=== PATIENT | male | born 1985 | race Caucasian/White ===

== ENCOUNTER 2025-04-19 09:57 | Emergency (ER) | payer MEDICAID ==
[~2025-04-19] VITALS: Ht 190.5 cm; Wt 89.2 kg
[~2025-04-19 09:57] MED LIST: ALBU18HF2 IH; CLON-527 PO; FAMO-1 PO; GUAI473S11 PO; HYDR1TAB PO; IBUP-1574 PO; IBUP-1984 PO; LORA-512 PO; PRED20TA PO; ROBCFL PO
[2025-04-19 10:12] VITALS: BP 128/81; PULSE 86; RESP 18; O2SAT 98
[2025-04-19] MEDS ORDERED: SULF1TAB49 PO (10:36)
--- NOTE | 2025-04-19 10:37 | Physician Documentation ---
History of Present Illness ~ Chief Complaint: Rash Stated Complaint: ABSCESS Time Seen by MD: 10:07 Primary Medical Doctor: NONE HPI This is a 39-year-old male who presents to the emergency department reporting that he has several sores on his buttocks. He is noting pain to the left buttock, causing difficulty sitting. He denies chills or fever, nausea or vomiting, flu-like symptoms. Medication Reconciliation Allergies: Coded Allergies: lansoprazole (Verified Allergy, Unknown, 04/19/25) Scheduled Albuterol Sulfate (Ventolin Hfa), 18 GM IH Q6H Clonazepam* (Klonopin*), 1 MG PO HS, (Reported) Famotidine* (Pepcid*), 20 MG PO DAILY Guaifenesin/Codeine Phos AC Syrup* (Cheratussin AC Syrup*), 10 ML PO Q6H Guaifenesin/D-Methorphan Hb/Pe Syrup* (Robitussin CF Syrup*), 10 ML PO Q6H Hydrocodone/Acetaminophen (Vicodin 5-500 Tablet), 1 TAB PO Q4H, (Reported) Ibuprofen (Ibuprofen), 600 MG PO Q8H Ibuprofen* (Motrin*), 800 MG PO QID Loratadine* (Alavert*), 10 MG PO DAILY, (Reported) Prednisone* (Prednisone*), 40 MG PO DAILY Prednisone* (Prednisone*), 40 MG PO DAILY Sulfamethoxazole/Trimethoprim (Bactrim Ds Tablet), 1 TAB PO Q12H Past Medical History Past Medical History: No Pertinent History, Anxiety, Bipolar, Schizophrenia Past Surgical History: orthopedic surgeries Alcohol Use: Occasionally Drug Use: none Lives with: Family Lives In: Home Occupation: employed, student Review of Systems ROS As stated above in the HPI, otherwise all systems are reviewed and negative. Physical Exam Vital Signs: Temperature: 97.8, Source: Temporal, Heart Rate: 86, Respiratory Rate: 18, BP: 128/81, Pulse Oximetry: 98, Weight: 89.150 Oxygen Flow Rate: 0 Physical Exam General: Alert, no apparent distress. Neck: Full range of motion. Respiratory: Lungs clear, no respiratory distress. Chest: No accessory muscle use. Cardiovascular: Regular rate and rhythm, no murmurs. Gastrointestinal: Soft, nontender, nondistended. Bowels sounds present. Extremities: Normal range of motion, no deformity. Neurologic: Oriented x4. Psychiatric: Normal mood and affect. Skin: Normal color, warm and dry. Several lesions to the buttocks, maculopapular. One abscess area left buttock with yellow center. Procedures Procedures I&D to left buttock abscess accomplished after verbal consent obtained. 1 ml of 1% lidocaine without epi injected at site after skin cleansed with alcohol. Tiny stab in center with #11 blade, after which point purulence and blood returned. Dressing applied by nurse. patient dwight fair. Progress Results/Orders Results/Orders Orders - RENAE WAYNE [employer] REFEREE Dressing Orders (04/19/25 10:33) Laceration/I&D Tray Set Up (04/19/25 10:33) Wound Care Orders (04/19/25 10:33) Completed Orders - RENAE WAYNE [employer] REFEREE Tetanus/Pertuss/Diph Acell/Pf (Boostrix (04/19/25 10:35) Lidocaine 1% 30ml Vial (Xylocaine 1% Via (04/19/25 10:35) Medications Received in ER Medications (Trade) Dose Ordered Sig/Latricia Route PRN Reason Start Time Stop Time Status Last Admin Dose Admin (Boostrix vaccine syringe) 0.5 ml ONCE ONCE IMVAC 04/19/25 10:35 04/19/25 10:36 DC 04/19/25 10:45 0.5 ML Vital Signs 04/19/25 10:12 Temp 97.8 Pulse 86 Resp 18 B/P (MAP) 128/81 Pulse Ox 98 O2 Flow Rate 0 Medical Decision Making Differential Dx:Considerations: Include: Abscess, Candidiasis, Contact dermatitis, Drug reaction, Erythema multiforme, Herpes zoster, Herpes simplex, Impetigo, Intertrigo, Psoriaisis, Scabies, Viral exanthema Departure Time of Disposition: 10:36 Impression: Primary Impression: Abscess Condition: Stable Discharge Instructions: Abscess, Care After Additional Instructions: Your tetanus status was updated in the emergency department. Take the prescribed antibiotics. Apply warm moist compresses to the abscess area on the left buttock for 15 minutes or more 4 times a day. Follow up with your primary care provider within the next week. Return if worse. Referrals: NO PRIMARY CARE PROVIDER (PCP) Prescriptions Sulfamethoxazole/Trimethoprim (Bactrim Ds Tablet) 800 Mg-160 Mg Tablet 1 TAB PO Q12H for 5 Days, #10 TAB Prov: RENAE WAYNE [employer] REFEREE 04/19/25 Education Educated: Patient Educated regarding: diagnosis, treatment, prognosis, need for follow up Signature Scribe Signature: x Attestation: The note accurately reflects work and decisions made by me.Renae Wayne - LARS 04/19/25 10:35 RENAE WAYNE [employer] REFEREE Apr 19, 2025 10:37
[2025-04-19] MEDS: TETanus/Pertussis (Acell)/Diphther VAC/PF (Tdap-Adult) 0.5ml syringe IMVAC ONE (10:45)
[2025-04-19] MEDS: LIDOcaine 1% 30ml preserv. free vial IJ ONE (10:46)
[2025-04-19 11:21] VITALS: TEMP 97.8
== END 2025-04-19 11:23 | disposition home or self-care (01) ==
LOC: ER 09:58
DX: L02.31 Cutaneous abscess of buttock (principal); Z88.8 Allergy status to other drugs, medicaments and biological substances; Z79.899 Other long term (current) drug therapy; Z72.89 Other problems related to lifestyle
CPT/HCPCS: 10060; 90471; 90715; 99283; A6407; A6449

== ENCOUNTER 2025-04-22 04:22 | Emergency (ER) | payer MEDICAID ==
[~2025-04-22] VITALS: Ht 188 cm; Wt 91.3 kg
[~2025-04-22 04:22] MED LIST changes: +SULF1TAB49 PO
[2025-04-22] MEDS ORDERED: CefTRIAXone 250MG IM Kit w/LIDOcaine IM ONE (06:20)
--- NOTE | 2025-04-22 06:33 | Physician Documentation ---
History of Present Illness ~ Chief Complaint: Abscess Stated Complaint: GROIN ABSCESS Time Seen by MD: 06:19 Primary Medical Doctor: NONE HPI This is a 39-year-old gentleman with a known history of schizophrenia who presents for evaluation of painful area on the inside of his right scrotum. He says has been seen here for a buttock abscess which has been drained three days ago. Taking Bactrim. It does not seem to be helping. Also has a lesion at the base of the shaft of his penis. Denies history of STD/STI as. No exposure to syphilis. Denies any fever or chills. Denies any other complaints. He denies use of tobacco, alcohol or illicit substances. Tetanus Within 5 Years: Yes Medication Reconciliation Allergies: Coded Allergies: lansoprazole (Verified Allergy, Unknown, 04/22/25) Scheduled Albuterol Sulfate (Ventolin Hfa), 18 GM IH Q6H Clonazepam* (Klonopin*), 1 MG PO HS, (Reported) Famotidine* (Pepcid*), 20 MG PO DAILY Guaifenesin/Codeine Phos AC Syrup* (Cheratussin AC Syrup*), 10 ML PO Q6H Guaifenesin/D-Methorphan Hb/Pe Syrup* (Robitussin CF Syrup*), 10 ML PO Q6H Hydrocodone/Acetaminophen (Vicodin 5-500 Tablet), 1 TAB PO Q4H, (Reported) Ibuprofen (Ibuprofen), 600 MG PO Q8H Ibuprofen* (Motrin*), 800 MG PO QID Loratadine* (Alavert*), 10 MG PO DAILY, (Reported) Prednisone* (Prednisone*), 40 MG PO DAILY Prednisone* (Prednisone*), 40 MG PO DAILY Sulfamethoxazole/Trimethoprim (Bactrim Ds Tablet), 1 TAB PO Q12H Past Medical History Past Medical History: No Pertinent History, Anxiety, Bipolar, Schizophrenia Past Surgical History: orthopedic surgeries Alcohol Use: Occasionally Drug Use: none Lives with: Family Lives In: Home Occupation: employed, student Review of Systems ROS 10 point review of systems was performed and unless noted above in HPI is negative for acute process/complaint. Physical Exam Vital Signs: Temperature: 97.9, Source: Oral, Heart Rate: 76, Respiratory Rate: 16, BP: 122/80, Pulse Oximetry: 99, Weight: 91.300 Oxygen Flow Rate: 0 Physical Exam Physical examination: GENERAL: Awake, alert, oriented, GCS 15, no apparent distress, non-toxic appearing, answers questions, follows commands appropriately. HEENT: Atraumatic, normocephalic, pupils equal, extraocular muscles intact Active gross movements, sclerae anicteric, mucus membranes moist, no stridor. NECK: Midline, no JVD CARDIOVASCULAR: Good skin perfusion without evidence of pallor, mottling. PULMONARY: Nonlabored, symmetric chest rise, no audible wheezing, no accessory muscle use, no respiratory distress, speaking in full sentences. GASTROINTESTINAL: Not distended. NEUROLOGIC: Lucid with normal mental status. Normal facial symmetry. Moves all extremities symmetrically and with purpose. No truncal ataxia. Speech is fluid without evidence of dysarthria or aphasia, no focal deficits appreciated. EXTREMITIES: Acute deformities Skin: warm, dry PSYCHIATRIC: Normal affect, normal insight, normal concentration. Focused exam: There is area of induration without fluctuance at the base of the scrotum on the right side. No drainage. Erythema and calor noted. Tender to palpation reproducing chief complaint. There is also white painless 6 mm sore at the base of his penis. No fluctuance. Progress Results/Orders Results/Orders Completed Orders - AALIYAH CARBAJAL DO Hydrocodone/Apap 5/325mg Tab ([place] 5/32 (04/22/25 06:20) Ceftriaxone 250 Im W/Lidocaine (Rocephin (04/22/25 06:20) Vital Signs 04/22/25 04:40 Temp 97.9 Pulse 76 Resp 16 B/P (MAP) 122/80 Pulse Ox 99 O2 Flow Rate 0 Medical Decision Making Findings Facility Status: ED Holds, [facility] process The plan was discussed with the patient, who demonstrates clear understanding of the plan and is in agreement with the plan unless otherwise noted in the chart. All questions have been answered, all concerns were addressed unless otherwise documented. I was available throughout their ED stay for frequent reassessment and questions. Differential Diagnoses (considered and possible or likely): [Scrotal cellulitis, less likely scrotal abscess, clinically no evidence of Lynn's gangrene getting] ??Differential Diagnoses (considered and unlikely, not requiring evaluation currently): [No evidence of acute intra-abdominal process. No denies drainage or bleeding.] MDM Data Please see HPI for the following: Independent Historians and external Records Review. Historian: [Patient] Independent Historians: ?[Record review] Medication Management: [Reviewed medication list] Social History and determinants: [Reviewed] Please see the body of the note for the following: Any independent interpretations of ECG, imaging studies. All vitals signs/haemodynamics, ordered tests were independently reviewed and interpreted by myself. Nursing triage complaint and vitals reviewed, additional nursing notes were reviewed as available and I agree unless otherwise noted or documented in contradiction in the chart Vital Signs: Independently reviewed Labs: Independently interpreted Imaging: Independently interpreted Old Medical Records: Independently reviewed, see [facility] for relevant summary and information Pulse Oximetry: [99] interpreted as [normal on room air] by me Additionally notably showing: [Hemodynamically stable] Tests considered but not ordered include: Hematologic workup and imaging has been considered but does not appear to be necessary given clinical nature of diagnosis Social Determinants of Health Impact: Patient was evaluated in [facility], [facility] [place] to healthcare due to below par ratio of patient to medical providers. [] Comorbid Conditions Impacting Present Evaluation and Care/Treatment: [psychiatric disease, suspected drug use] Management Discussions with other Healthcare Providers: [None] Treatment and Disposition Medication Management (Given or considered): [Pain management]. See EMR for details Consideration for Hospitalization/Escalation/Deescalation of Care: Admission for observation has been considered, [however the patient is able to tolerate p.o., their symptoms are controlled, they are able to rely on oral medications, and their chief complaint/diagnosis can be managed on outpatient basis.] ?ED Course:?[No clinical deterioration] ?Shared decision making:?[Patient is hemodynamically stable for discharge home with follow with their primary care provider. [ ] Specific and cautious return precautions provided and discussed with full understanding. Any incidental findings were also discussed and follow up recommendations given. [] All questions answered. Patient/family were able to verbalize back return precautions. Patient/family agree to plan. Copies of imaging and laboratory studies were provided.] Code status:?FULL Please see the full Electronic Medical Record for full details of nursing documentation, medications list, other records of complete past medical history and conditions, vital signs, laboratory studies, and any radiologic study interpretations by radiologists. Portions of this note were completed using dragon dictation software and as a result there may exist minor errors in diane lambert. I have reviewed elements of past family and social history and agree as included in note. Departure Disposition: HOME / SELF CARE / HOMELESS Impression: Primary Impression: Cellulitis of scrotum Condition: Stable Discharge Instructions: Cellulitis, Adult, [id number] Referrals: NO PRIMARY CARE PROVIDER (PCP) Prescriptions Amox Tr/Potassium Clavulanate (Augmentin 875-125 Tablet) 1 Each Tablet 1 TAB PO Q12H for 10 Days, #20 TAB Prov: AALIYAH CARBAJAL DO 04/22/25 Clindamycin HCl (Clindamycin HCl) 150 Mg Capsule 3 CAP PO Q8H for 10 Days, #90 CAP Prov: AALIYAH CARBAJAL DO 04/22/25 Education Educated: Patient Educated regarding: diagnosis, treatment, prognosis, need for follow up Signature Scribe Signature: No scribe Attestation: This note accurately reflects clinical decisions, work performed by myself, DO RAVEN Ryan NICHOLAS M DO Apr 22, 2025 06:33
[2025-04-22] MEDS ORDERED: CLIN-119 PO (06:35)
[2025-04-22] MEDS ORDERED: AMOX-117 PO (06:35)
[2025-04-22 06:50] VITALS: BP 130/73; PULSE 66; TEMP 97.9; O2SAT 100
[2025-04-22 07:00] VITALS: RESP 18
[2025-04-22] MEDS: CefTRIAXone 1000mg IM Kit (w/lidocaine diluent) IM ONE (07:00)
[2025-04-22] MEDS: HYDROcodone/acetaminophen 5mg/325mg tablet PO ONE (07:00)
== END 2025-04-22 07:09 | disposition home or self-care (01) ==
LOC: ER 04:23
DX: N49.2 Inflammatory disorders of scrotum (principal); F20.9 Schizophrenia, unspecified; Z88.8 Allergy status to other drugs, medicaments and biological substances; Z79.899 Other long term (current) drug therapy; Z72.89 Other problems related to lifestyle
CPT/HCPCS: 96372; 99283; J0696